=== PATIENT | male | born 1975 | race Caucasian/White ===

== ENCOUNTER 2018-02-01 15:59 | Emergency (ER) | payer MEDICAID ==
[~2018-02-01] VITALS: Ht 177.8 cm; Wt 88.9 kg
[2018-02-01 16:32] VITALS: BP 125/70
--- NOTE | 2018-02-01 16:37 | NUR ---
PT AMBULATES TO BED 5
--- NOTE | 2018-02-01 16:40 | NUR ---
42 YO MALE BIB SELF FOR RIGHT SHOULDER PAIN. NO INJURY OR SWELLING AT THIS TIME, FULL ROM AT THIS TIME. PT DENIES N/V/D; SKIN IS PINK/WARM/DRY; AAOX4 WITH EVEN AND STEADY GAIT; LUNGS CLEAR BL; HR EVEN AND REGULAR; PT DENIES ANY FEVER, CP, SOB, OR COUGH AT THIS TIME; PATIENT STATES PAIN OF 8/10 AT THIS TIME; VSS; PATIENT POSITIONED FOR COMFORT; HOB ELEVATED; BEDRAILS UP X1; BED DOWN. ER MD MADE AWARE OF PT STATUS.
--- NOTE | 2018-02-01 17:10 | NUR ---
Patient being evaluated by physician at bedside.
--- NOTE | 2018-02-01 17:10 | NUR ---
Note [email or web address] in EDM - 02/01/18 at 1846 by MEDFL Patient discharged with v/s stable. Written and verbal after care instructions given and explained. Patient alert, oriented and verbalized understanding of instructions. Ambulatory with steady gait. All questions addressed prior to discharge. ID band removed. Patient advised to follow up with PMD. Rx of MOTRIN given. Patient educated on indication of medication including possible reaction and side effects. Opportunity to ask questions provided and answered.
[2018-02-01 18:46] VITALS: BP 123/68
== END 2018-02-01 18:46 | disposition home or self-care (01) ==
LOC: MED 15:59
DX: M25.511 Pain in right shoulder (principal)
CPT/HCPCS: 73030; 99284; Q0092